=== PATIENT | female | born 1935 | race Caucasian/White ===

== ENCOUNTER 2017-08-16 05:57 | Emergency (ER) | payer MEDICARE, OTHER | END 2017-08-16 06:34 | disposition home or self-care (01) | LOC: D.ER 05:57 | DX: S61.412A Laceration without foreign body of left hand, initial encounter (principal); W55.03XA Scratched by cat, initial encounter; Y93.89 Activity, other specified; Y92.019 Unspecified place in single-family (private) house as the place of occurrence of the external cause ==

== ENCOUNTER 2019-07-27 18:32 | Inpatient (IN) | payer MEDICARE, OTHER ==
[~2019-07-27] VITALS: Ht 172.7 cm; Wt 72.6 kg
[~2019-07-27 18:32] MED LIST: ACETAMINOPHEN500 M1 PO; CYANOCOBAL1000 MCG/4 SC; FLORAJEN3 CAPS460 MG PO; FOLATE0.4 MG PO; FUROSEMIDE20 MG PO; IPRAT-ALBUT 0.5-3 ML INH; K-DUR20 MEQ PO; LOVENOX40 MG/0.4 SC; MUCINEX600 MG PO; Nystatin Oral Susp [ PO; ONCOLOGY MOUTHWASH PO; PEPCID PO; PROTONIX40 MG PO; Retacrit SC; SYNTHROID75 MCG PO; THERAGRAN M [BK1 TAB PO
[2019-07-27 21:34] VITALS: BP 122/56
--- NOTE | 2019-07-27 23:43 | NUR ---
RECEIVED PT LYING IN BED EYES CLOSED RESTING. NO SIGNS OF ACUTE DISTRESS NOTED. RIGHT HIP INCISIONS X3 DISTAL INCISION DRESSING C/D/I. CL IN REACH. BED ALARM ON.
--- NOTE | 2019-07-28 00:12 | NUR ---
PT LYING IN BED SUPINE EYES CLOSED RESTING. RR EVEN AND UNLABORED. CONTINUES ON 3L VIA NC. CL IN REACH
[2019-07-28 03:38] VITALS: BP 122/56; BMI 24.3
--- NOTE | 2019-07-28 05:17 | NUR ---
PT LYING IN BED EYES CLOSED RESTING. RR EVEN AND UNLABROED. CL IN REACH
[2019-07-28 06:58] LABS: BASOPHILS 0.2 % (0-2); EOSINOPHILS 0.4 % (0-7); HEMATOCRIT 30.3 % (36.0-48.0); LYMPHOCYTES 29.7 % (15-50); MCH 35.4 pg (26.0-34.0); MCHC 29.7 g/dL (31.0-37.0); MEAN PLATELET VOLUME 9.7 fL (7.4-10.4); MONOCYTES 8.9 % (2-11); NEUTROPHILS 59.8 % (40-80); PLATELET COUNT 270 10x3/uL (130-400); RBC 2.54 10x6/uL (4.00-5.40); WBC 5.1 10x3/uL (4.8-10.8)
[2019-07-28 07:05] LABS: CALC OSMOLALITY 273 mosm/kg (275-300); CALCIUM 7.8 mg/dL (8.5-10.1); CARBON DIOXIDE 27.6 mmol/L (21.0-32.0); CHLORIDE - SERUM 103 mmol/L (98-107); CREATININE - SERUM 0.6 mg/dL (0.6-1.3); GLUCOSE 94 mg/dL (74-106); MCV 119.3 fL (80.0-100.0); POTASSIUM - SERUM 3.7 mmol/L (3.5-5.1); SODIUM 137 mmol/L (136-145); UREA NITROGEN 12 mg/dL (7-18); eGFR NON AFRICAN AMERICAN > 90 mL/min (90-120)
[2019-07-28 08:00] VITALS: BP 140/66
--- NOTE | 2019-07-28 08:00 | NUR ---
PATIENT IS VERY CONFUSED. BED ALARM ON. BREAKFAST TRAY SET UP FOR PATIENT. CALL LIGHT WITHIN REACH. VOCIES NO NEEDS. WILL COTNINUE WITH PLAN OF CARE
--- NOTE | 2019-07-28 10:55 | NUR ---
OCCUPATIONAL THERAPIST IN ROOM. HELPING PATIENT WITH A SHOWER
[2019-07-28 12:07] LABS: ROULEAUX OCC
[2019-07-28 12:08] LABS: ANISOCYTOSIS 1+; PLATELET ESTIMATE NORMAL
[2019-07-28 14:33] VITALS: Ht 172.7 cm; Wt 72.6 kg
--- NOTE | 2019-07-28 18:49 | NUR ---
Fotofeedback TECH CALLED AND NOTIFIED THIS NURSE THAT PULSE WAS IRREGULAR RUNNING IN THE 150'S. DR MACEDO NOTIFIED. NEW ORDER FOR DIG 0.25 NOW. GIVEN
[2019-07-28 19:30] VITALS: BP 94/50
--- NOTE | 2019-07-29 00:44 | NUR ---
RECEIVED LYING IN BED. ORIENTED TO SELF ONLY. BRUISES NOTED TO UPPER EXTS. DR REMINGTON DESIR DUE TO PATIENT IN AFIB WITH RATE 130'S. PATEINT HAD RECEIVED DIGOXIN 0.25 PO AT 1850. NO ORDERS RECEIVED. PT CONVERTED TO SR RATE 87. PATIENT HAD NO C/O WHEN IN AFIB. RELATE SHE WAS JUST TIRED. ASSISTED TO BATHROOM. WEAK AND USTEADY. O2 AT 3L/MIN NC. MEDS ADMINISTERED PER ORDERS WITHOUT DIFFICULTY. CONTINUE POC AND PROVIDE SAFE ENVIRONMENT.
--- NOTE | 2019-07-29 03:44 | NUR ---
PT AWAKE. C/O SERGIO 03/31 TO RLE. PRN TYLENOL 500MG ADMINISTERED PER ORDERS.
[2019-07-29 07:26] LABS: ANION GAP 9.1 mmol/L (8-16); CALCIUM 8.2 mg/dL (8.5-10.1); CARBON DIOXIDE 27.8 mmol/L (21.0-32.0); CREATININE - SERUM 0.8 mg/dL (0.6-1.3); POTASSIUM - SERUM 3.9 mmol/L (3.5-5.1)
--- NOTE | 2019-07-29 07:36 | NUR ---
PATIENT IS VERY CONFUSED. BED ALARM ON. CALL LIGHT WITHIN REACH. VOICES NO NEEDS AT THIS TIME. WILL CONTINUE WITH PLAN OF CARE
[2019-07-29 08:00] VITALS: BP 132/53
[2019-07-29 08:07] LABS: BASOPHILS 0.2 % (0-2); EOSINOPHILS 0.4 % (0-7); HEMATOCRIT 32.5 % (36.0-48.0); HEMOGLOBIN 9.5 g/dL (12-16); IMMATURE GRANULOCYTES 0.6 % (0-5); LYMPHOCYTES 32.8 % (15-50); MCH 35.3 pg (26.0-34.0); MCHC 29.2 g/dL (31.0-37.0); MCV 120.8 fL (80.0-100.0); MEAN PLATELET VOLUME 10.3 fL (7.4-10.4); MONOCYTES 13.3 % (2-11); NEUTROPHILS 52.7 % (40-80); PLATELET COUNT 283 10x3/uL (130-400); RBC 2.69 10x6/uL (4.00-5.40); RDW 22.7 % (11.5-14.5); WBC 5.3 10x3/uL (4.8-10.8)
--- NOTE | 2019-07-29 14:42 | NUR ---
PATIENT RESTING IN BED AFTER THERAPY. BED ALARM ON. CALL LIGHT WITHIN REACH.
--- NOTE | 2019-07-29 15:20 | NUR ---
PATIENT ADMITTED TO REHAB FROM ACUTE FLOOR. DR. ANDERSON IS HER PCP. DME AT HOME IS A CANE. DISCHARGE PLANS ARE FOR [facility]IENT TO [facility] BUT IF NEEDING TO GO SNF, [facility] IS HER CHOICE. WILL CONTINUE TO FOLLOW WITH PATIENT.
--- NOTE | 2019-07-29 19:43 | NUR ---
AWAKE AND ALERT BUT CONFUSED. REPSIRAITONS UNLABORED. RIGHT HIP INCISION OPEN TO AIR. TELEMETRY ON SHOWING SINUS RHYTHM. NO ACUTE DISTRESS NOTED. CALL LIGHT IN REACH.
[2019-07-29 20:00] VITALS: BP 123/57
--- NOTE | 2019-07-30 01:04 | NUR ---
MEDICATED FOR C/O PAIN IN RIGHT HIP. SEE MAR. NOTED VERY CONFUSED. ATTEMPTED TO REORIENT. SAFETY MEASURES IN PLACE.
--- NOTE | 2019-07-30 05:08 | NUR ---
RESTING IN BED WITH RESPIRATIONS UNLABORED. NO NEEDS VOICED AT THIS TIME. CALL LIGHT IN REACH.
--- NOTE | 2019-07-30 07:57 | NUR ---
PT UP IN CHAIR AT BEDSIDE EATING BREAKFAST CALL LIGHT IN REACH WILL MONITER
[2019-07-30 08:18] VITALS: BP 137/56
--- NOTE | 2019-07-30 16:55 | NUR ---
I have reviewed this patient and I concur with the Shift Assessment completed by the Licensed Practical Nurse today this shift.
--- NOTE | 2019-07-30 19:04 | NUR ---
PT RESTING IN BED WITH EYES OPEN CALL LIGHT IN REACH NO PROBLEMS WILL MONITER
[2019-07-30 19:43] VITALS: BP 136/57
--- NOTE | 2019-07-30 20:00 | NUR ---
AWAKE AND ALERT. RESTING IN BED. INCONTINENT OF URINE. ASSISTED TO BATHROOM TO CHANGE AND BED LINENS CHANGED. ASSISTED BACK TO BED. STATES HER HIP HASNT HURT BAD TODAY. RESPIRATIONS UNLABORED. CALL LIGHT IN REACH.
[2019-07-30 21:30] VITALS: BP 155/76
--- NOTE | 2019-07-30 21:30 | NUR ---
C/O FEELING HOT. FACE FLUSHED. TEMPERATURE CHECKED AT PATIENT IS AFEBRILE AT 98.3. ASSISTED TO BATHROOM PER REQUEST. STATES SHE "JUST FEELS WEAK" ASSISTED BACK TO BED. HAD BREATHING TREATMENT BEFORE SHE STARTED FEELING WEAK AND HOT. VITAL SIGNS TAKEN. BLOOD PRESSURE 155/76 PULSE 94 RESPIRATIONS 16 O2 SATURATION 95% ON ROOM AIR. FAN PROVIDED TO ASSIST IN COOLING HER OFF. WILL CONTINUE TO MONITOR.
--- NOTE | 2019-07-30 22:08 | NUR ---
NOW STATES SHE FEELS A LITTLE BETTER AND COOLER. WILL CONTINUE TO MONITOR.
--- NOTE | 2019-07-30 22:47 | NUR ---
STATES SHE FEELS MUCH BETTER NOW. STATES "I DONT KNOW WHAT CAME OVER ME. I WAS JUST FEELING WEAK AND HOT BUT NOW IM COOL." ASSISTED TO BATHROOM AND BACK TO BED. CALL LIGHT IN REACH.
--- NOTE | 2019-07-31 01:15 | NUR ---
SITTING ON SIDE OF BED. CONFUSED. STATES "I KNOW WHO I AM BUT I'M CONFUSED." REMINDED SHE WAS IN [facility] AFTER HIP SURGERY. ASSITED TO LIE DOWN AND ASSURED THAT I WOULD CHECK ON HER OFTEN. SHE IS NOW RESTING IN BED. CALL LIGHT IN REACH BED ALARM ON.
--- NOTE | 2019-07-31 03:34 | NUR ---
SLEEPING WITH RESPIRATIONS UNLABORED. NO DISTRESS NOTED.
--- NOTE | 2019-07-31 05:25 | NUR ---
SHOWER GIVEN AND TOLERATED WELL. LINENS CHANGED. NOW RESTING IN BED WITH NO DISTRESS NOTED.
--- NOTE | 2019-07-31 08:00 | NUR ---
PT RESTING IN BED WITH EYES OPEN CALL LIGHT IN REACH NO PROBLEMS WILL MONITER
--- NOTE | 2019-07-31 18:10 | NUR ---
PT RESTING IN BED WITH EYES OPEN CALL LIGHT IN REACH WILL MONITER
--- NOTE | 2019-07-31 19:15 | NUR ---
CALLED TO ROOM BY ROOM MATE. PATIENT HAD STATED "IF I WAS EVER GOING TO COMMIT SUICIDE IT WOULD BE TODAY" SHE WAS TEARY AND AFTER TALKING WITH HER SHE STATED "I DONT KNOW WHY, THAT MEDICATION MAKES ME CRAZY" BUT SHE WAS UNABLE TO STATE WHICH MEDICATION. BLOWING ENGINEER NOTIFIED AND DAVID-PSYCH STAFF NOTED FOR SUICIDE ASSESSMENT. PATIENT REQUEST I CALL HER SISTER OR GRANDAUGHTER IN [place]. I WILL CALL THEM AND MAKE THEM AWARE OF SITUAITON.
--- NOTE | 2019-07-31 19:24 | NUR ---
CALLED MARY ALICE CASTILLO AND MESSAGE LEFT.
--- NOTE | 2019-07-31 19:36 | NUR ---
DR VELASCO, SAUSAGE CUTTER FOR OLVIN, NOTIFIED AND REVIEWED PT'S BEHAVIOR AND ASSESSMENT RESULTS. PT IS A LOW RISK. RESOURCES GIVEN AND SHE VERBALIZES UNDERSTANDING.
--- NOTE | 2019-07-31 19:42 | NUR ---
[facility] [place] CALLED AND SHE IS AWARE OF SITUATION. SHE STATES SHE WILL LET HER GRANDSON KNOW AND HE WOULD LIKELY COME HERE TO SEE HER. PSYCH NURSE DID SUICIDE ASSESMENT AND DEEMED PAITENT WAS NOT A RISK. WILL CONTINUE TO MONITOR CLOSELY.
[2019-07-31 19:46] VITALS: BP 144/67
--- NOTE | 2019-07-31 20:15 | NUR ---
PATIENTS GRANDSON CALLED HER AND TALKED WITH HER AND SHE STATED HE WOULD COME IN AM FOR A VISIT. PATIENT IS CALMER NOW AND RESTING QUIETLY. NO DISTRESS NOTED.
--- NOTE | 2019-08-01 00:47 | NUR ---
ATE SOME PUDDING AND THEN REPOSITIONED FOR COMFORT. STILL HAVING SOME CONFUSION. SAFETY MEASURES IN PLACE.
--- NOTE | 2019-08-01 03:06 | NUR ---
AWAKE AND REQUESTED TO GO TO BATHROOM. REMAINS CONFUSED. PULLED TELEMETRY OFF. REPLACED TELEMETRY LEADDS. ASSISTED TO BATHROOM. HAD SMALL BM. BACK IN BED WITH CALL LIGHT IN REACH.
--- NOTE | 2019-08-01 05:02 | NUR ---
RESTING IN BED. NO DISTRESS NOTED. HAS NOT SLEPT MUCH THIS SHIFT. CALL LIGHT IN REACH.
--- NOTE | 2019-08-01 07:33 | NUR ---
AWAKE. EATING BREAKFAST. NO C/O PAIN. CL IN REACH. RESP EVEN AND UNLABORED.
[2019-08-01 08:12] VITALS: BP 131/56
--- NOTE | 2019-08-01 11:36 | NUR ---
NO CHANGE IN ASSESSMENT. PARTICIPATED IN THERAPY TODAY. NO C/O PAIN.
--- NOTE | 2019-08-01 12:05 | RHP ---
PATIENT: IRASEMA FRYE MEDICAL RECORD: [id number] ACCOUNT: [id number] LOCATION:[facility] : 34 ADMISSION DATE: 07/27/19 REHABILITATION HISTORY AND PHYSICAL EXAMINATION POST ADMISSION PHYSICIAN EXAMINATION ADMITTING DIAGNOSIS: Femur fracture. HISTORY OF PRESENT ILLNESS: The patient is an 84-year-old female patient admitted secondary to a fracture of the right femur. The patient had a right hip gamma nailing done. She is an 84-year-old female patient who presented to the ED after sitting down in her bed to put her clothes on and she missed the bed falling on her right hip. She had immediate pain and trouble ambulating. X-ray showed an acute displaced intertrochanteric subtrochanteric fracture with displaced fragments. She was admitted to the hospital for orthopedic surgery consult. She is a Pentecostalism and she does not want any blood products. Her H&H was 10.5 and 33.2. It has gone down a little bit all the way down to 3.6 and 11.3, but it is now back up. She had been followed by oncology and hematology, is receiving IV iron. She has been seen by cardiology, found to have a non-Q-wave [place], elevated troponin. She has been followed by pulmonary during her stay. She has also been seen and followed by both PT and OT throughout her stay. She did have a pelvic x-ray done on 07/27 that did show she had refracture of that right femur also. There is no intervention, is weightbearing as tolerated at this time. She has required IV iron, electrolyte protocol, supplemental oxygen, acute blood loss anemia. Monitoring her levels closely. Monitoring her vital signs. She has had some confusion. She has got decreased activity tolerance, decreased strength, proximal muscle weakness, gait disturbance, impaired mobility, dyspnea on exertion. She is a high fall risk and has self-care deficit. These are all her barriers to her discharge home. Lives at home alone, was independent with ADLs and mobility prior to this. She is set up for max assist with her ADLs and mod to max assist with her mobility. She plans to return home at her prior level of function or better if possible. COMORBIDITIES: Include oropharyngeal dysphagia, dysarthria speech, hyponatremia. She has got a non-Q-wave WV, chronic obstructive pulmonary disease, pneumonia, hypoxia, hypoxic respiratory failure, decreased H&H. She is a Pentecostalism. She is an ex-smoker. She has got a history of nephrolithiasis, neurocardiogenic syncope, hypothyroidism, esophageal stricture, has a history of positive SHARITA in the past. PAST MEDICAL HISTORY: Significant for coronary artery disease, nephrolithiasis, neurocardiogenic syncope, hypothyroidism, esophageal stricture, cataracts, glaucoma, tobacco use, kidney stones, constipation. PAST SURGICAL HISTORY: Includes left heart catheterization with stent placement. She has got right carotid stenosis of 50%. She had a history of cataract surgery, trabeculectomy, surgery on her foot, hysterectomy, right knee surgery, oophorectomy. ALLERGIES: PENICILLIN, STATINS, NEOMYCIN, BACITRACIN AND POLYMYXIN. CURRENT MEDICATIONS: Include Floranex 1 cap daily, she is on Retacrit 20,000 units daily, she is on potassium 20 mEq daily, furosemide 20 mg daily, folic acid 0.4 mg daily, multivitamin 1 tab daily, Lovenox 40 mg subQ daily, she is on B12 1000 mcg daily, DuMane updrafts, she is on Protonix 40 mg daily, she is on HISTORY AND PHYSICAL [id number] FRIEND,IRASEMA Abebe Pepcid 20 mg at bedtime, she is on an oncology mouthwash 5 cc t.i.d., she is on Mycostatin suspension 5 cc before every meal and at bedtime, Mucinex 600 mg b.i.d., MiraLax 17 g in 8 ounces of water daily and Tylenol 500 mg every 4 hours p.r.n. HABITS: Distant history of tobacco use. FAMILY HISTORY: Noncontributory. SOCIAL HISTORY: The patient hopes to return back home and get back on her prior level of functioning. REVIEW OF SYSTEMS: GENERAL: Does complain of weakness and fatigue. HEENT: Denies cold, cough, or congestion. CARDIOVASCULAR: Denies any chest pain. PHYSICAL EXAMINATION: VITAL SIGNS: Stable, afebrile. GENERAL: An elderly female in no acute distress, alert upon exam. HEENT: Normocephalic and atraumatic. Mucosa moist. NECK: Supple. No lymphadenopathy. LUNGS: Clear in upper [place] with no wheezing, rhonchi or rales. HEART: Regular rate and rhythm. No murmurs, rubs or gallops. ABDOMEN: Soft, benign, and nondistended. Positive bowel sounds times 4. EXTREMITIES: No clubbing, cyanosis or edema. Postop area looks pretty good at this time. NEUROLOGIC: She does have noted weakness. LABORATORY DATA: White count is 5.0, H&H of 9 and 30, and platelet count is noted to be 270. Her sodium is 137, potassium 3.7, BUN and creatinine of 12 and 0.6 and blood sugar is noted to be 94. ASSESSMENT: This is an 84-year-old female patient admitted to rehab with a working diagnosis of femur fracture. The patient has potential to make improvement. We instituted the following multidisciplinary therapies include, but not limited to physical, occupational, respiratory, speech, nutritional services, prosthetics and orthotics. Given her complex medical conditions and risks for more complications, rehabilitation services cannot be provided at a low level of care such a skilled nurse facility. PLAN: 1. Admit to [facility] for intensive inpatient therapy to include the following disciplines; A. Physical therapy to improve gait, all transfer skills and bed mobility to a modified independent level. B. Occupational therapy to a modified independent level. C. Case management to assist with discharge planning and placement options. D. Nutrition to assist with nutritional needs. E. Rehabilitation nursing to assist in monitoring the patient's underlying medical conditions and to assist with any type of bowel or bladder management. 2. The patient's current medication and medical care will be continued. 3. The patient will be placed on standard fall precautions. 4. The patient's estimated length of stay is approximately 7-10 days. 5. We will discuss the patient during care team staff meeting this week. We HISTORY AND PHYSICAL [id number] FRIEND,IRASEMA Abebe will watch her blood counts closely. We are somewhat limited with her being a Pentecostalism and I will see again in the a.m. TRANSINT:[id number] Voice Confirmation ID: [id number] DOCUMENT ID: [id number] [place] notes whether there has been none or any medical/functional change since admission: - No change since prescreen. [place] attests patient continues to be appropriate for IRF: - Continues to be appropriate. MARSHA MACEDO MD at 1205 CC: [id number] DICTATION DATE: 02/06/20 0821 BUILDING CONSTRUCTION PROFESSOR: 07/28/19 0940 ADM IN [facility] [address] [facility], [facility]
--- NOTE | 2019-08-01 13:10 | NUR ---
Nutrition Follow-up: Diet: High Calorie High Protein soft foods, finger foods + Ensure with meals PO intake: ~83% average x last 7 meals; reports good appetite and that she is drinking her Ensures. Last BM: 08/01/19. WT: 160# (07/28/19) Meds noted: lasix. Labs reviewed Recommend continue current diet. RD following.
--- NOTE | 2019-08-01 15:52 | NUR ---
IN THERAPY ROOM. PAIN MADE GIVEN. NO CHANGE IN ASSESSMENT.
--- NOTE | 2019-08-01 19:05 | NUR ---
BEDSIDE REPORT COMPLETE. RECIEVED PT LYING IN BED EYES CLOSED RESTING. RR EVEN AND UNLABORED. NO FAMILY AT BEDSIDE NOTED. CL IN REACH. FALL PRECAUTIONS IN PLACE. WILL CONTINUE TO MONITOR
[2019-08-01 20:45] VITALS: BP 108/42
--- NOTE | 2019-08-01 23:30 | NUR ---
SIX COLOR PRESS OPERATOR CALLED AND STATED PT HAS BEEN ON TELEMETRY FOR 10 DAYS RUNNING SINUS RHYTHM AND TO DC TELEMETRY. TELEMETRY DC'D.
--- NOTE | 2019-08-02 00:56 | NUR ---
PT LYING IN BED EYES CLOSED RESTING. RR EVEN AND UNLABORED. CL IN REACH
--- NOTE | 2019-08-02 04:08 | NUR ---
PT LYING IN BED EYES CLOSED RESTING. RR EVEN AND UNLABORED. CL IN REACH
--- NOTE | 2019-08-02 05:30 | NUR ---
PT IN SHOWER WITH ASSISTANCE IBETH GAY. DENIES ANY NEEDS OR PAIN.
--- NOTE | 2019-08-02 07:58 | NUR ---
PT UP EATING BREAKFAST TOLERATING WELL WILL MONITER
[2019-08-02 08:04] VITALS: BP 144/50
--- NOTE | 2019-08-02 18:43 | NUR ---
PT RESTING IN BED WITH EYES OPEN CALL LIGHT IN REACH NO PROBLEMS WILL MONITER
--- NOTE | 2019-08-02 19:07 | NUR ---
BEDSIDE REPORT COMPLETE. RECEIVED PT LYING IN BED SUPINE ALERT AND WAKE. DENIES ANY NEEDS. C/O RIGHT HIP PAIN 12/29 REQUESTED PAIN MEDICATION. NO SIGNS OF ACUTE DISTRESS NOTED. CL IN REACH. FALL PRECAUTIONS IN PLACE. WILL CONTINUE TO MONITOR
[2019-08-02 21:50] VITALS: BP 114/52
--- NOTE | 2019-08-02 23:20 | NUR ---
PT LYING IN BED EYES CLOSED RESTING. RR EVEN AND UNLABORED. CL IN REACH
--- NOTE | 2019-08-03 02:28 | NUR ---
PT LYING IN BED SUPINE EYES CLOSED RESTING. RR EVEN AND UNLABORED. CL IN REACH
[2019-08-03 08:44] VITALS: BP 141/60
[2019-08-03 08:50] LABS: CALC OSMOLALITY 271 mosm/kg (275-300); CALCIUM 8.3 mg/dL (8.5-10.1); CARBON DIOXIDE 27.8 mmol/L (21.0-32.0); CHLORIDE - SERUM 103 mmol/L (98-107); CREATININE - SERUM 0.7 mg/dL (0.6-1.3); GLUCOSE 92 mg/dL (74-106); POTASSIUM - SERUM 3.9 mmol/L (3.5-5.1); SODIUM 136 mmol/L (136-145); UREA NITROGEN 13 mg/dL (7-18); eGFR NON AFRICAN AMERICAN 84 mL/min (90-120)
[2019-08-03 08:57] LABS: BASOPHILS 0.5 % (0-2); EOSINOPHILS 1.2 % (0-7); HEMATOCRIT 35.1 % (36.0-48.0); HEMOGLOBIN 10.4 g/dL (12-16); IMMATURE GRANULOCYTES 0.2 % (0-5); LYMPHOCYTES 38.4 % (15-50); MCHC 29.6 g/dL (31.0-37.0); MCV 118.2 fL (80.0-100.0); MEAN PLATELET VOLUME 9.4 fL (7.4-10.4); MONOCYTES 13.5 % (2-11); NEUTROPHILS 46.2 % (40-80); PLATELET COUNT 317 10x3/uL (130-400); RBC 2.97 10x6/uL (4.00-5.40); RDW 20.3 % (11.5-14.5)
--- NOTE | 2019-08-03 09:00 | NUR ---
OCCUPATIONAL THERAPIST WORKING WITH PATIENT. HELPING PATIENT WITH A SHOWER
--- NOTE | 2019-08-03 10:13 | NUR ---
PATIENT IN REHAB ROOM. WORKING WITH PHYSICAL THERAPIST. DENIES ANY PAIN/DISC. WILL CONTINUE WITH PLAN OF CARE
--- NOTE | 2019-08-03 12:26 | NUR ---
PRN PAIN MEDICATION GIVEN PER PATIENT REQUEST FOR RIGHT THIGH PAIN
--- NOTE | 2019-08-03 19:29 | NUR ---
AWAKE AND ALERT. STATES SHE HAD A GOOD DAY. RESPIRATIONS UNLABORED. PERIODS OF CONFUSION. NO ACUTE DISTRESS NOTED. CALL LIGHT IN REACH.
[2019-08-03 21:41] VITALS: BP 124/52
--- NOTE | 2019-08-04 01:35 | NUR ---
RESTING IN BED WITH RESPIRAITONS UNLABORED. NO DISTRESS NOTED.
--- NOTE | 2019-08-04 03:18 | NUR ---
NOTED SITTING ON FOOT OF BED. REMAINS CONFUSED TO TIME AND SITUATION. ASSISTED TO BATHROOM AND BACK TO BED. HAD INCONTINENT EPISODE OF URINE. BRIEF CHANGED. REMINDED TO CALL FOR ASSISTANCE.
--- NOTE | 2019-08-04 05:32 | NUR ---
RESTING IN BED. NO ACUTE CHANGES IN CONDITION THIS SHIFT. RESPIRATIONS UNLABORED. NO DISTRESS NOTED.
[2019-08-04 08:12] VITALS: BP 163/67
--- NOTE | 2019-08-04 09:55 | NUR ---
PATIENT IS ALERT WITH CONFUSION. IN REHAB ROOM WORKING WITH PHYSICAL THERAPIST. DENIES ANY PAIN AT THIS TIME. WILL CONTINUE WITH PLAN OF CARE
--- NOTE | 2019-08-04 14:33 | NUR ---
PATIENT SITTING UP IN WHEELCHAIR AT BEDSIDE AFTER THERAPY. WATCHING T.V. CHAIR ALARM ON. CALL LIGHT WITHIN REACH
--- NOTE | 2019-08-04 14:50 | NUR ---
Nutrition Follow-up: Diet: High Calorie High Protein Soft, finger foods + Chocolate Ensure TID PO intake: ~84% average x last 9 meals Last BM: 08/02/19. WT: 160# (07/28/19) Meds noted: lasix. Labs reviewed. Recommend continue current diet and oral nutrition supplement. Encourage PO intake. RD following.
--- NOTE | 2019-08-04 15:16 | NUR ---
PRN PAIN MEDICATION GIVEN FOR BILATERAL LEG PAIN PER PATIENT REQUEST
--- NOTE | 2019-08-04 17:06 | NUR ---
CARE TEAM MEETING: PATIENT PROGRESSING SLOWLY IN THERAPY. DISCHARGE PLANS ARE FOR PATIENT TO DISCHARGE TO [facility]. WILL CONTINUE TO FOLLOW WITH PATIENT.
--- NOTE | 2019-08-04 20:02 | NUR ---
AWAKE AND ALERT. CONFUSED. SITTING IN WHEELCHAIR. MEDICATED FOR C/O PAIN. SEE MAR. RESPIRAITONS UNLABORED. NO DISTRESS NOTED.
[2019-08-04 22:13] VITALS: BP 143/60
--- NOTE | 2019-08-05 02:16 | NUR ---
AWAKE AND RESPIRATIONS UNLABORED. NO DISTRESS NOTED.
--- NOTE | 2019-08-05 05:26 | NUR ---
RESTING IN BED. RESPIRATIONS UNLABORED. NO ACUTE DISTRESS NOTED. CONTIUES TO HAVE PERIODS OF CONFUSION.
[2019-08-05 08:35] LABS: CALC OSMOLALITY 276 mosm/kg (275-300); CALCIUM 8.4 mg/dL (8.5-10.1); CARBON DIOXIDE 27.1 mmol/L (21.0-32.0); CHLORIDE - SERUM 104 mmol/L (98-107); CREATININE - SERUM 0.7 mg/dL (0.6-1.3); GLUCOSE 98 mg/dL (74-106); POTASSIUM - SERUM 4.1 mmol/L (3.5-5.1); SODIUM 138 mmol/L (136-145); UREA NITROGEN 15 mg/dL (7-18); eGFR NON AFRICAN AMERICAN 84 mL/min (90-120)
[2019-08-05 09:09] LABS: BASOPHILS 0.3 % (0-2); EOSINOPHILS 0.5 % (0-7); HEMATOCRIT 39.2 % (36.0-48.0); HEMOGLOBIN 11.8 g/dL (12-16); IMMATURE GRANULOCYTES 0.8 % (0-5); LYMPHOCYTES 45.3 % (15-50); MCH 35.4 pg (26.0-34.0); MCHC 30.1 g/dL (31.0-37.0); MCV 117.7 fL (80.0-100.0); MEAN PLATELET VOLUME 9.8 fL (7.4-10.4); MONOCYTES 14.8 % (2-11); NEUTROPHILS 38.3 % (40-80); PLATELET COUNT 295 10x3/uL (130-400); RBC 3.33 10x6/uL (4.00-5.40); WBC 3.7 10x3/uL (4.8-10.8)
[2019-08-05 09:41] VITALS: BP 165/73
--- NOTE | 2019-08-05 18:50 | NUR ---
PT RESTING IN BED WITH EYES OPEN CALL LIGHT IN REACH NO PROBLEMS WILL MONITER
[2019-08-05 20:00] VITALS: BP 129/54
--- NOTE | 2019-08-05 23:00 | NUR ---
PT IN BED RESTING WITH EYES CLOSED. NO VISUAL CUES OF DISTRESS NOTED. SIDE RAILS UP X2. CALL LIGHT IN REACH. WILL CONTINUE TO MONITOR.
--- NOTE | 2019-08-06 03:00 | NUR ---
PT IN BED RESTING WITH EYES CLOSED. NO VISUAL CUES OF DISTRESS NOTED. SIDE RAILS UP X2. CALL LIGHT IN REACH. WILL CONTINUE TO MONITOR.
--- NOTE | 2019-08-06 07:15 | NUR ---
RECEIVED SITTING UP IN BEDSIDE CHAIR.IS ORIENTED X 3.NO C/O PAIN OR NEEDS EXCEPT WANTS A SHOWER TODAY.WILL AST.WITH ASSIST WITH SHOWER TODAY.CL IN EASY REACH.WILL CONTINUE WITH CURRENT PLAN OF CARE.
[2019-08-06 07:30] VITALS: BP 137/59
--- NOTE | 2019-08-06 08:50 | NUR ---
MEDS CRUSHED AND GIVEN IN PUDDING PER HER REQUEST.TAKEN WITHOUT DIFFICULTY.ASSISTED TO BATHROOM AND THEN TO BED.REQUIRES ASSIST WITH STANDING AND PULLING PANTS DOWN AND UP.REQUIRES ASSIST WITH LIFTING LEGS INTO BED.CL IN EASY REACH.
--- NOTE | 2019-08-06 19:29 | NUR ---
BEDSIDE REPORT COMPLETE. PT LYING IN BED SUPINE EYES CLOSED RESTING. RR EVEN AND UNLABORED. CL IN REACH. FALL PRECAUTIONS IN PLACE
[2019-08-06 20:30] VITALS: BP 136/62
--- NOTE | 2019-08-06 23:28 | NUR ---
PT LYING IN BED SUPINE EYES CLOSED RESTING. RR EVEN AND UNLABORED. CL IN REACH
--- NOTE | 2019-08-07 04:38 | NUR ---
PT LYING IN BED EYES CLOSED RESTING. RR EVEN AND UNLABORED. CL IN REACH
--- NOTE | 2019-08-07 07:45 | NUR ---
PT LYING SUPINE IN BED. RESPONDS TO VERBAL STIMULI. RESP EVEN AND UNLABORED. SHIFT ASSESSMENT COMPLETED. DENIES ANY PAIN OR DISCOMFORT AT THIS TIME. PT ASSISTED TO RESTROOM PER REQUEST. PT RESTING IN W/C AWAITING FOR BREAKFAST AT THIS TIME. CLWR. WILL CPOC.
[2019-08-07 08:00] VITALS: BP 126/56
--- NOTE | 2019-08-07 19:10 | NUR ---
BEDSIDE REPORT COMPLETE. PT LYING IN BED AWAKE AND ALERT TO PERSON AND PLACE. REORIENTED TO TIME AND SITUATION. NO SIGNS OF ACUTE DISTRESS NOTED. CL IN REACH. FALL PRECAUTIONS IN PLACE WILL CONTINUE TO MONITOR
[2019-08-07 20:00] VITALS: BP 116/48
--- NOTE | 2019-08-08 00:46 | NUR ---
PT LYING IN BED EYES CLOSED RESTING. RR EVEN AND UNLABORED. CL IN REACH
--- NOTE | 2019-08-08 04:16 | NUR ---
PT LYING IN BED SUPINE EYES CLOSED RESTING. RR EVEN AND UNLABORED. CL IN REACH
--- NOTE | 2019-08-08 06:37 | NUR ---
PT LYING IN BED AWAKE AND ALERT VISITING WITH ROOMMATE FAMILY. RR EVEN AND UNLABORED. CL IN REACH
[2019-08-08 07:54] LABS: BASOPHILS 0.2 % (0-2); EOSINOPHILS 0.2 % (0-7); HEMATOCRIT 35.7 % (36.0-48.0); HEMOGLOBIN 10.8 g/dL (12-16); IMMATURE GRANULOCYTES 0.5 % (0-5); LYMPHOCYTES 39.2 % (15-50); MCH 34.4 pg (26.0-34.0); MCHC 30.3 g/dL (31.0-37.0); MCV 113.7 fL (80.0-100.0); MEAN PLATELET VOLUME 9.1 fL (7.4-10.4); MONOCYTES 13.8 % (2-11); NEUTROPHILS 46.1 % (40-80); PLATELET COUNT 310 10x3/uL (130-400); RBC 3.14 10x6/uL (4.00-5.40); RDW 18.4 % (11.5-14.5); WBC 4.3 10x3/uL (4.8-10.8)
[2019-08-08 08:00] VITALS: BP 141/66
[2019-08-08 08:03] LABS: CALC OSMOLALITY 274 mosm/kg (275-300); CALCIUM 8.2 mg/dL (8.5-10.1); CARBON DIOXIDE 28.5 mmol/L (21.0-32.0); CHLORIDE - SERUM 104 mmol/L (98-107); CREATININE - SERUM 0.6 mg/dL (0.6-1.3); GLUCOSE 100 mg/dL (74-106); POTASSIUM - SERUM 3.5 mmol/L (3.5-5.1); SODIUM 137 mmol/L (136-145); UREA NITROGEN 15 mg/dL (7-18); eGFR NON AFRICAN AMERICAN > 90 mL/min (90-120)
--- NOTE | 2019-08-08 12:28 | NUR ---
NUTRITION FOLLOW UP INTERVIEW: Met with patient while she was eating lunch. She stated her appetite has been good. Denied any recent nausea or vomiting. She stated that she has been drinking and enjoying the Ensures. DIET: High myrna/protein diet. Chocolate Ensure TID PO INTAKE: 75% avg x 9 meals BM: x 2 on 08/06 WEIGHT: 160 lbs (07/28) SIG MEDS: KCl, MVI, Lasix, Folic Acid, Pepcid, Nystatin, Protonix, Loveonx SIG LABS: Calcium- 8.2(L) Patient eating well and tolerating ensure. Clinical dietitian to continue following and monitoring patient DHS.
--- NOTE | 2019-08-08 19:25 | NUR ---
GREETED PATIENT AND INTRODUCED MYSELF HER NURSE. PATIENT IS LAYING IN BED JUST FINISHING HER DINNER. PT. IS VERY CONFUSED AT THIS TIME. RESPIRATIONS EVEN. NO S/S OF DISTRESS. CALL LIGHT IN REACH.
[2019-08-08 22:21] VITALS: BP 106/51
--- NOTE | 2019-08-09 01:48 | NUR ---
PT. AWAKE AND TRYING TO CLIMB OUT OF BED. PT. STATES THAT SHE NEEDS TO GET UP AND TAKE A SHOWER AND WASH HER HAIR. ATTEMPTED TO REORIENT PT. TO TIME AND SITUATION. PT. REPOSITIONED FOR COMFORT. BED ALARM ON AND WORKING PROPERLY. CALL LIGHT IN REACH. WCTM.
--- NOTE | 2019-08-09 02:16 | NUR ---
PT STILL CONTINUES TO BE CONFUSED CONCERNING TIME. KEEPS INSISTING THAT SHE GET UP AND TAKE A SHOWER AND WASH HER HAIR. ATTEMPTED ONCE AGAIN TO REORIENT PATIENT, BUT PATIENT BECAME VERY RUDE AND STATED " I WILL JUST REPORT YOU TO DR. MACEDO MRS. NURSE FOR NOT GETTING ME UP AND GIVING ME A SHOWER." THIS NURSE ATTEMPTED ONCE AGAIN TO REORIENT PATIENT THAT IT WAS 0210 IN THE MORNING AND IT WAS TOO EARLY FOR A SHOWER. CALL LIGHT IN REACH. [facility]ALTH SYSTEM.
--- NOTE | 2019-08-09 04:09 | NUR ---
PT. RESTING QUIETLY WITH EYES CLOSED. RESPIRATIONS EVEN. NO S/S OF DISTRESS. CALL LIGHT IN REACH.
[2019-08-09 08:00] VITALS: BP 132/62
--- NOTE | 2019-08-09 10:00 | NUR ---
I have reviewed this patient and I concur with the Shift Assessment completed by the Licensed Practical Nurse today this shift.
--- NOTE | 2019-08-09 18:53 | NUR ---
GREETED PATIENT AND INTRODUCED MYSELF HER NURSE. PATIENT IS CONFUSED TO TIME,PLACE AND SITUATION AT THIS TIME. PT. THINKS IT IS TIME TO GET UP AND GO TO THERAPY. REORIENTATED TO TIME AND PLACE. BEDSIDE SHIFT REPORT COMPLETED BY OFF GOING NURSE. CALL LIGHT IN REACH.
[2019-08-09 20:42] VITALS: BP 140/61
--- NOTE | 2019-08-10 05:48 | NUR ---
PT AWAKE AND TRYING TO CLIMB OUT OF BED UNASSISTED. PT. REORIENTATED AND REPOSITIONED FOR COMFORT. CALL LIGHT IN REACH.
--- NOTE | 2019-08-10 05:58 | NUR ---
PT PUT IN WHEELCHAIR AND MOVED TO NURSES STATION. PT. CONFUSED AND REFUSES TO STAY IN BED.
[2019-08-10 08:00] VITALS: BP 129/61
[2019-08-10 09:20] LABS: BASOPHILS 0.4 % (0-2); EOSINOPHILS 0.2 % (0-7); HEMOGLOBIN 11.7 g/dL (12-16); IMMATURE GRANULOCYTES 0.4 % (0-5); LYMPHOCYTES 36.9 % (15-50); MCH 34.9 pg (26.0-34.0); MCV 116.4 fL (80.0-100.0); MEAN PLATELET VOLUME 9.2 fL (7.4-10.4); MONOCYTES 12.6 % (2-11); NEUTROPHILS 49.5 % (40-80); PLATELET COUNT 316 10x3/uL (130-400); RBC 3.35 10x6/uL (4.00-5.40); RDW 18.5 % (11.5-14.5); WBC 4.8 10x3/uL (4.8-10.8)
[2019-08-10 09:24] LABS: CALC OSMOLALITY 278 mosm/kg (275-300); CALCIUM 8.6 mg/dL (8.5-10.1); CHLORIDE - SERUM 104 mmol/L (98-107); CREATININE - SERUM 0.7 mg/dL (0.6-1.3); GLUCOSE 90 mg/dL (74-106); POTASSIUM - SERUM 3.9 mmol/L (3.5-5.1); SODIUM 139 mmol/L (136-145); UREA NITROGEN 16 mg/dL (7-18); eGFR NON AFRICAN AMERICAN 84 mL/min (90-120)
--- NOTE | 2019-08-10 19:02 | NUR ---
GREETED PATIENT AND INTRODUCED MYSELF HER NURSE. PATIENT IS CONFUSED THIS AFTERNOON. AOX1. STATES THAT HER RIGHT KNEE IS STILL HURTING. EXPLAINED TO PATIENT THAT PRN PAIN MEDICATION COULD BE ADMINISTERED FOR THE PAIN. RESPIRATIONS EVEN. NO S/S OF DISTRESS. BEDSIDE SHIFT REPORT COMPLETED FROM OFF GOING NURSE. CALL LIGHT IN REACH.
[2019-08-10 22:11] VITALS: BP 140/65
--- NOTE | 2019-08-11 02:38 | NUR ---
PT. RESTING QUIETLY WITH EYES CLOSED. RESPIRATIONS EVEN. NO S/S OF DISTRESS. CALL LIGHT IN REACH.
--- NOTE | 2019-08-11 08:00 | NUR ---
PATIENT IS ALERT WITH CONFUSION. BED ALARM ON. SITTING UP IN BED TO EAT BREAKFAST. CALL LIGHT WITHIN REACH. VOICES NO NEEDS AT THIS TIME. WILL CONTINUE WITH PLAN OF CARE
[2019-08-11 08:43] VITALS: BP 107/55
--- NOTE | 2019-08-11 10:30 | NUR ---
OCCUPATIONAL THERAPIST HELPING PATIENT WITH SHOWER THIS AM
--- NOTE | 2019-08-11 15:51 | NUR ---
Nutrition Follow-up: Diet: High Calorie/High Protein Soft Finger Foods + Ensure with meals PO intake: ~67% average x last 9 meals. She reports appetite is fine "just too much food." She does state that she likes the food. She is drinking Ensure. Last BM: 08/06/19 ("day before yesterday" per patient), she does c/o constipation. WT: 160# (07/28/19), no new wt Meds noted: lasix. Labs reviewed. Recommend getting new weight. Recommend continue current diet. Encouraged PO intake. RD following.
[2019-08-11 17:51] LABS: APPEARANCE CLEAR (CLEAR); BILIRUBIN NEGATIVE (NEGATIVE); COLOR YELLOW (YELLOW); GLUCOSE NEGATIVE (NEGATIVE); KETONE NEGATIVE (NEGATIVE); NITRITE POSITIVE (NEGATIVE); PROTEIN NEGATIVE (NEGATIVE); UROBILINOGEN NORMAL (NORMAL)
[2019-08-11 17:52] LABS: BACTERIA MANY /hpf (NEGATIVE); EPITHELIAL CELLS 0-5 /hpf (0-5); RED CELLS - URINE OCC /hpf (0-5)
--- NOTE | 2019-08-11 19:25 | NUR ---
ASSISTED TO AND FROM BATHROOM. CL IN REACH. PT BACK IN BED. BED ALARM ON. DENIES FURTHER NEEDS AT THIS TIME. BED IN LOW SIDE RAILS X2. RESP EVEN AND UNLABORED. PT IS CONFUSED THIS IS NOT NEW. LUNGS CLEAR. BOWEL ACTIVE X4. WILL CONTINUE TO MONITOR.
[2019-08-11 22:10] VITALS: BP 131/60
--- NOTE | 2019-08-12 02:52 | NUR ---
I have reviewed this patient and I concur with the Shift Assessment completed by the Licensed Practical Nurse today this shift.
[2019-08-12 07:39] LABS: BASOPHILS 0.2 % (0-2); EOSINOPHILS 0.4 % (0-7); HEMATOCRIT 38.2 % (36.0-48.0); HEMOGLOBIN 11.5 g/dL (12-16); IMMATURE GRANULOCYTES 0.4 % (0-5); LYMPHOCYTES 40.2 % (15-50); MCH 34.3 pg (26.0-34.0); MCHC 30.1 g/dL (31.0-37.0); MEAN PLATELET VOLUME 9.1 fL (7.4-10.4); MONOCYTES 12.8 % (2-11); PLATELET COUNT 299 10x3/uL (130-400); RBC 3.35 10x6/uL (4.00-5.40); WBC 5.1 10x3/uL (4.8-10.8)
--- NOTE | 2019-08-12 08:00 | NUR ---
PATIENT IS CONFUSED. BED ALARM ON. CALL LIGHT WITHIN REACH. VOICES NO NEEDS AT THIS TIME. WILL COTNINUE WITH PLAN OF CARE
[2019-08-12 08:25] VITALS: BP 151/68
[2019-08-12 08:42] LABS: CALC OSMOLALITY 276 mosm/kg (275-300); CALCIUM 8.4 mg/dL (8.5-10.1); CARBON DIOXIDE 27.8 mmol/L (21.0-32.0); CHLORIDE - SERUM 105 mmol/L (98-107); CREATININE - SERUM 0.7 mg/dL (0.6-1.3); GLUCOSE 96 mg/dL (74-106); POTASSIUM - SERUM 3.9 mmol/L (3.5-5.1); SODIUM 138 mmol/L (136-145); UREA NITROGEN 16 mg/dL (7-18); eGFR NON AFRICAN AMERICAN 84 mL/min (90-120)
--- NOTE | 2019-08-12 12:54 | NUR ---
REFERRAL TO [facility] MADE FOR POSSIBLE ADMISSION 08/15/19. WILL CONTINUE TO FOLLOW WITH PATIENT.
--- NOTE | 2019-08-12 12:55 | NUR ---
PATIENT WORKING IN REHAB ROOM WITH OCCUPATIONAL THERAPIST. DENIES ANY PAIN/DISC AT THIS TIME.
--- NOTE | 2019-08-12 20:00 | NUR ---
AWAKE AND ALERT. CONFUSED. RESPIRAITONS UNLABORED. MEDICATED FOR C/O PAIN. SEE MAR. NO ACUTE DISTRESS NOTED. CALL LIGHT IN REACH.
[2019-08-12 21:50] VITALS: BP 150/76
--- NOTE | 2019-08-13 00:17 | NUR ---
RESTING IN BED WITH RESPIRAITONS UNLABORED. NO DISTRESS NOTED.
--- NOTE | 2019-08-13 03:33 | NUR ---
CONTINUES SLEEPING WITH NO DISTRESS NOTED. CALL LIGHT IN REACH.
--- NOTE | 2019-08-13 05:22 | NUR ---
RESTLESS HOURS WITH CONFUSION AND ATTEMPTS TO GET OUT OF BED WITHOUT CALLING FOR ASSISTANCE. SAFETY MEASURES IN PLACE.
[2019-08-13 07:00] VITALS: BP 142/75
--- NOTE | 2019-08-13 09:55 | NUR ---
PT SAT UP ON SIDE OF BED FOR BREAKFAST, AM MEDS ADMINISTERED. PT ASSISTED INTO BR AND BACK TO BED. PT DENIES NEEDS AT THIS TIME. WCTM.
--- NOTE | 2019-08-13 19:17 | NUR ---
GREETED PATIENT AND INTRODUCED MYSELF HER NURSE. PATIENT IS LAYING IN BED RESTING AT THIS TIME. RESPIRATIONS EVEN. NO S/S OF DISTRESS. DENIES ANY NEEDS AT THIS TIME. CALL LIGHT IN REACH.
[2019-08-13 19:45] VITALS: BP 141/70
--- NOTE | 2019-08-14 00:59 | NUR ---
PT. RESTING QUIETLY WITH EYES CLOSED. RESPIRATIONS EVEN. NO S/S OF DISTRESS. CALL LIGHT IN REACH.
--- NOTE | 2019-08-14 03:00 | NUR ---
PT. RESTING QUIETLY WITH EYES CLOSED. RESPIRATIONS EVEN. NO S/S OF DISTRESS. CALL LIGHT IN REACH.
--- NOTE | 2019-08-14 08:08 | NUR ---
PT SITTING UP IN WHEELCHAIR EATING BREAKFAST, DENIES NEEDS. WCTM.
[2019-08-14 10:08] VITALS: BP 155/68
--- NOTE | 2019-08-14 19:14 | NUR ---
GREETED PATIENT AND INTRODUCED MYSELF HER NURSE. PATIENT IS LAYING IN BED RESTING QUIETLY AT THIS TIME. RESPIRATIONS EVEN. NO S/S OF DISTRESS. DENIES ANY FURTHER NEEDS AT THIS TIME. CALL LIGHT IN REACH.
[2019-08-14 19:30] VITALS: BP 115/57
--- NOTE | 2019-08-15 01:01 | NUR ---
PT. RESTING QUIETLY WITH EYES CLOSED. RESPIRATIONS EVEN. NO S/S OF DISTRESS. CALL LIGHT IN REACH. BED ALARM ON AND ACTIVE.
--- NOTE | 2019-08-15 07:36 | NUR ---
ALERT AND ORIENTED. NO DISTRESS NOTED. RESP EVEN AND UNLABORED. CL IN REACH.
[2019-08-15 08:14] VITALS: BP 118/54
[2019-08-15] MEDS ORDERED: HYDROCODON-ACE1 EAC7 PO (08:23)
[2019-08-15] MEDS ORDERED: MACROBID100 MG PO (08:25)
--- NOTE | 2019-08-15 13:23 | NUR ---
SITTING IN CHAIR IN ROOM. CHAIR ALARM ON. CL IN REACH.
--- NOTE | 2019-08-15 15:13 | NUR ---
WILL DC TO [facility] 5[facility] PER [facility]IR [facility]. SCRIPT FOR HYDROCODONE SENT WITH DC MED LIST. REPORT CALLED TO TO FACILITY NURSE.
--- NOTE | 2019-08-15 15:19 | NUR ---
PATIENT DISCHARGING TO [facility]IA [facility]ILITY [facility]. NO HOME HEALTH OR DME NEEDED AT THIS TIME. PATIENT CHOICE FORM FOR SNF SIGNED, COPY GIVEN TO PATIENT AND ONE FILED IN CHART.[facility] FORM SIGNED AND EXPLAINED, ONE FILED IN CHART AND ONE GIVEN TO PATIENT. AN APPOINTMENT WITH DR. ANDERSON WILL BE MADE AT TIME OF DISCHARGE FROM FACILITY. DR. COLLADO 08/25/19 @ 10:45, DR. SIMON 08/31/19 @ 10:00. DISCHARGE INSTRUCTIONS REVIEWED WITH PATIENT , FAXED TO PCP AND SNF. FAMILY HAS BEEN NOTIFIED.
--- NOTE | 2019-08-15 15:54 | NUR ---
REPORT GIVEN TO DONY, NURSE AT FACILITY.
== END 2019-08-15 17:00 | DRG 559 ==
LOC: D.REHAB 18:32
PROVIDERS: ADMIT Emergency Medicine; ATTEND Emergency Medicine
DX: S72.141D Displaced intertrochanteric fracture of right femur, subsequent encounter for closed fracture with routine healing (principal); I21.4 Non-ST elevation (NSTEMI) myocardial infarction; J18.9 Pneumonia, unspecified organism; J96.91 Respiratory failure, unspecified with hypoxia; E87.1 Hypo-osmolality and hyponatremia; B37.0 Candidal stomatitis; J81.1 Chronic pulmonary edema; W19.XXXD Unspecified fall, subsequent encounter; R13.12 Dysphagia, oropharyngeal phase; J44.9 Chronic obstructive pulmonary disease, unspecified; E03.9 Hypothyroidism, unspecified; D64.9 Anemia, unspecified; R53.1 Weakness; R32 Unspecified urinary incontinence; R47.1 Dysarthria and anarthria; I95.9 Hypotension, unspecified; R07.9 Chest pain, unspecified

== ENCOUNTER 2019-11-10 00:34 | Inpatient (IN) | payer MEDICARE, OTHER ==
--- NOTE | ~2019-11-10 | DS ---
PATIENT:FRIEND,IRASEMA Abebe :33 MEDICAL RECORD: [id number] DISCHARGE SUMMARY ADMISSION DATE: 11/10/19 DISCHARGE DATE: 11/29/19 IDENTIFYING DATA: The patient is 84 years old and she was admitted to the hospital on a voluntary basis. CHIEF COMPLAINT: Confusion and agitation. HISTORY OF PRESENT ILLNESS: The patient lives in a local snf. She has been paranoid there. She believes the staff is tunneling into her room for the purposes of attacking her. She has been threatening other people, staff, and patients at the snf. She has made statements that she was going to kill herself and she has been crying and disorganized. HOSPITAL COURSE: The patient was admitted to the hospital and fully evaluated from both a medical, psychological, and social standpoint. She was found to have an advanced dementia and was treated with both mood stabilizing and memory enhancing medications. She showed improvement through the course of the hospitalizations and was subsequently transitioned back to a long-term care setting. DISCHARGE DIAGNOSES: 1. AXIS I: Advanced major neurocognitive disorder of the Alzheimer's type with behavioral disturbances. 2. AXIS II: None. 3. AXIS III: Coronary artery disease, chronic obstructive pulmonary disease, glaucoma, cataracts, osteoarthritis, esophageal stricture, and hypothyroidism. 4. AXIS IV: Moderate stressors. 5. AXIS V: Global assessment of functioning is 30. PLAN: At the time of discharge, the patient was in good behavioral control and had no active thoughts of harming herself or others. She was tolerating her medications well. Her long-term prognosis is guarded. TRANSINT:[id number] Voice Confirmation ID: [id number] DOCUMENT ID: [id number] SANJUANA BAH MD CC: [id number] DICTATION DATE: 11/29/19 1616 SHREDDER PICKER: 11/30/19 0329 DIS IN 11/29/19 [facility] [address] [place] [address]
[~2019-11-10 00:34] MED LIST changes: +HYDROCODON-ACE1 EAC7 PO; +MACROBID100 MG PO
[2019-11-10 01:00] LABS: BASOPHILS 0.2 % (0-2); EOSINOPHILS 1.1 % (0-7); HEMOGLOBIN 12.8 g/dL (12-16); IMMATURE GRANULOCYTES 0.2 % (0-5); LYMPHOCYTES 37.6 % (15-50); MCH 31.7 pg (26.0-34.0); MEAN PLATELET VOLUME 8.9 fL (7.4-10.4); MONOCYTES 12.3 % (2-11); NEUTROPHILS 48.6 % (40-80); RBC 4.04 10x6/uL (4.00-5.40); RDW 14.6 % (11.5-14.5); WBC 6.2 10x3/uL (4.8-10.8)
[2019-11-10 01:04] LABS: PLATELET COUNT 206 10x3/uL (130-400)
[2019-11-10 01:07] LABS: ANION GAP 9.3 mmol/L (8-16); CALCIUM 8.7 mg/dL (8.5-10.1); CARBON DIOXIDE 26.8 mmol/L (21.0-32.0); POTASSIUM - SERUM 4.1 mmol/L (3.5-5.1)
[2019-11-10 01:13] LABS: ALBUMIN 3.5 g/dL (3.4-5.0); BILIRUBIN - TOTAL 0.5 mg/dL (0.2-1.3); MAGNESIUM - SERUM 1.6 mg/dL (1.8-2.4); PROTEIN - SERUM 6.6 g/dL (6.4-8.2)
[2019-11-10 04:36] LABS: BILIRUBIN NEGATIVE (NEGATIVE); GLUCOSE NEGATIVE (NEGATIVE); KETONE NEGATIVE (NEGATIVE); NITRITE NEGATIVE (NEGATIVE); UROBILINOGEN NORMAL (NORMAL)
[2019-11-10 04:42] LABS: UDS - AMPHET NEGATIVE QUAL (NEGATIVE); UDS - BARB NEGATIVE QUAL (NEGATIVE); UDS - BENZO NEGATIVE QUAL (NEGATIVE); UDS - COCAINE NEGATIVE QUAL (NEGATIVE); UDS - OPIATE NEGATIVE QUAL (NEGATIVE); UDS - PCP NEGATIVE QUAL (NEGATIVE); UDS - THC NEGATIVE QUAL (NEGATIVE)
--- NOTE | 2019-11-10 06:34 | NUR ---
SPOKE WITH BRITTNEY HENSLEY IN [facility]. SHE REPORTS THAT AFTER DR. BAH REVIEWED THE PT'S CHART, SHE DOES NOT MEET CRITERIA FOR ADMISSION TO [facility] WITH HER CURRENT BEHAVIORS. RECOMMENDS SENDING PT BACK TO [facility] AND F/U WITH HER PCP
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
--- NOTE | 2019-11-10 09:10 | NUR ---
PATIENT EVALUATED BY [facility] NURSE [facility], PATIENT WILL BE ACCEPTED TO [facility] PER [facility].
[2019-11-10] MEDS ORDERED: COLACE100 MG (11:53)
[2019-11-10] MEDS ORDERED: FERROUS SULFAT325 MG (11:59)
[2019-11-10] MEDS ORDERED: XALATAN 0.0052.5 ML RIGHT EYE (12:01)
[2019-11-10] MEDS ORDERED: IMODIUM2 MG (12:02)
[2019-11-10] MEDS ORDERED: NAPROXEN SODIU220 M1 (12:03)
[2019-11-10] MEDS ORDERED: MIRALAX17 GM (12:03)
[2019-11-10] MEDS ORDERED: NITROSTAT0.3 MG SL (12:05)
[2019-11-10] MEDS ORDERED: ZOLOFT25 MG (12:07)
[2019-11-10 12:41] VITALS: BP 80/40; BMI 19.2
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
[2019-11-10 13:49] LABS: CHOL - HDL RATIO 4.3 ratio (2.3-4.1); LDL-HDL RATIO 2.8 ratio (1.5-3.5)
[2019-11-10 16:03] VITALS: BP 80/40
[2019-11-10 20:00] VITALS: BP 115/56
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
[2019-11-11 09:57] VITALS: BP 109/57
[2019-11-11 13:58] VITALS: Wt 66.0 kg
--- NOTE | 2019-11-11 16:06 | NUR ---
PT SITTING IN CHAIR AT THIS TIME. CONFUSION NOTED. PT IS ALERT AND ORIENTED TO SELF ONLY. PT IS COMPLIANT WITH MEDS, VITALS AND ASSESSMENTS. DURING PERICARE PT STARTS YELLING AND IS COMBATIVE WITH STAFF. REDIRECT AND REORIENT NEEDED. PT REQUIRES 2X ASSISTANCE WITH ADLS. CHAIR ALARM IN PLACE AND ACTIVE. WILL CONT PLAN OF CARE.
--- NOTE | 2019-11-11 18:01 | NUR ---
The patient's grandson called and asked about her wellbeing and he said to tell her he loved her. Let her know that he called and she called him back and they spoke for a couple minutes.
[2019-11-11 20:00] VITALS: BP 107/57
--- NOTE | 2019-11-11 21:48 | NUR ---
B.) PT IS ALERT AND ORIENTED TO SELF AND SITUATION. SHE IS RECEIVED IN THE HALLWAY OUTSIDE THE NURSES STATION. SHE IS DEMANDING WITH STAFF. SHE USES A WHEELCHAIR TO ASSIST WITH AMBULATION. SHE ATTEMPTS TO MONOPOLIZE STAFF AND IS INTRUSIVE WITH OTHERS CARE AT TIMES. I.) PROVIDED PM MEDICATIONS SCHEDULED AND PRN NAPROXEN FOR CHRONIC BACK PAIN. REDIRECT OFTEN. R.) COMPLIANT WITH ALL MEDICATIONS EXCEPT MUCINEX. DIFFICULT TO REDIRECT AT TIMES. P.) WILL CONTINUE TO MONITOR.
--- NOTE | 2019-11-12 07:43 | NUR ---
The patient is awake and she is pleasant this am, she did not scream or yell when staff got her up out of bed. She states she slept "Pretty good." She is self propelling in a w/c. She asked me my name this am, but she had forgotten we met yesterday. She is oriented to self only. She has poor insight into her situation. She has not shown aggression, or paranoia this am, will monitor her bahaviors and mood. Provide prescribed meds. Continue POC.
[2019-11-12 08:09] VITALS: BP 100/52
[2019-11-12 20:00] VITALS: BP 96/56
--- NOTE | 2019-11-12 22:30 | NUR ---
B.) PT IS ALERT AND ORIENTED TO SELF AND SITUATION. SHE IS RECEIVED IN THE DAYROOM SOCIALIZING WITH HER PEERS. SHE IS CALM AND COOPERATIVE. SHE IS DEMANDING WITH STAFF AT TIMES. I.) PROVIDED PM MEDICATIONS PRESCRIBED. REDIRECT NEEDED. PROVIDED PRN NAPROXEN FOR HER CHRONIC BACK PAIN. R.) COMPLIANT WITH ALL MEDICATIONS. EASY TO REDIRECT AT TIMES. P.) WILL CONTINUE TO MONITOR.
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
--- NOTE | 2019-11-13 10:00 | NUR ---
The patient sat on the couch after breakfast and she was complaining that her pants are too tight. So explained to her that "We can change her pants." She said "Well, you do realize I have a metal arturo in my back, don't you." Let her we did know.
--- NOTE | 2019-11-13 10:20 | NUR ---
Staff offered to to change her pants since her pants are tight around her waist. The patient declined she says "I don't trust those girls." Explained to her that I am with you and I can help you. She then said I was a snake because I was going to allow staff to assist her. She is very demented and she wants her way right now. She absolutely refused to have her pants changed even though she was adamant they be changed earlier.
--- NOTE | 2019-11-13 19:48 | NUR ---
RECEIVED IN DAYROOM. SITTING IN A CHAIR WITH PEERS AT HER SIDE. CALM AND COOPERATIVE WITH CARE AND ASSESSMENT. NO SIGNS OF PARANOIA. REDIRECT AND REORIENT NEEDED. CONTINUES TO SIT CALMLY IN DAYROOM. CONTINUE PLAN OF CARE.
[2019-11-13 20:04] VITALS: BP 104/55
[2019-11-14 07:40] VITALS: BP 100/50
--- NOTE | 2019-11-14 12:00 | NUR ---
RECEIVED IN HALLWAY OUTSIDE OF NURSES STATION. CALM AND COOPERATIVE WITH CARE AND ASSESSMENT. PARANOID AT TIMES. DEMANDING. REDIRECT AND REORIENT NEEDED. EATING LUNCH AT THIS TIME. CONTINUE PLAN OF CARE.
--- NOTE | 2019-11-14 12:04 | PSY ---
PATIENT NAME:FRIENDIRASEMA MEDICAL RECORD: [id number] : 33 LOCATION:[facility] ADMISSION DATE: 11/10/19 ACCOUNT: [id number] PSYCHIATRIC EVALUATION DATE OF EVALUATION: 11/10/19 IDENTIFYING DATA: The patient is 84 years old and she was admitted to the hospital on a voluntary basis. CHIEF COMPLAINT: Confusion and agitation. HISTORY OF PRESENT ILLNESS: The patient lives in a local snf. She has been very paranoid there. She believes that the staff is tunneling into her room to attack her. She has been threatening other people, staff and patients at the snf. She also said that she is going to kill herself. She has been crying and disorganized. PAST MEDICAL HISTORY: Significant for coronary artery disease, COPD, hypothyroidism and a fracture of her right femur. PAST PSYCHIATRIC HISTORY: None. FAMILY HISTORY: Unknown. ALLERGIES: PENICILLIN AND STATINS. CURRENT MEDICATIONS: Include iron, MiraLax and Zoloft. SOCIAL HISTORY: The patient is . She does have adult children. She denies a history of drug or alcohol abuse. MENTAL STATUS EXAMINATION: The patient is awake, alert and oriented to person, but not to place, time or situation. Her mood is angry. Her affect is constricted. Thought processes are disorganized. Memory, concentration, and abstraction abilities are moderately impaired and she denies any intent to harm herself or others as well as psychotic symptoms. ASSETS: Supportive family members. LIABILITIES: Limited insight. 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 AXIS II: None. AXIS III: Coronary artery disease, chronic obstructive pulmonary disease, glaucoma, cataracts, esophageal stricture, hypothyroidism. AXIS IV: Moderate stressors. AXIS V: Global assessment of functioning is 25. PLAN: At this time, the patient is admitted to the hospital secondary to psychotic, agitated symptoms associated with a dementing illness. She will be treated with mood stabilizing and antipsychotic medications as deemed appropriate. Her long-term prognosis is guarded. TRANSINT:[id number] Voice Confirmation ID: [id number] DOCUMENT ID: [id number] SANJUANA BAH MD at 1204 CC: [id number] DICTATION DATE: 11/10/19 162 NON PROFIT JOB TITLES: 11/10/19 1637 ADM IN [facility] [address] [place] [place] [id number]
--- NOTE | 2019-11-14 20:02 | NUR ---
RECEIVED IN HALLWAY OUTSIDE OF NURSES STATION. CALM AND COOPERATIVE WITH CARE AND ASSESSMENT. NO SIGNS OF PARANIOA. REDIRECT AND REORIENT NEEDED. CONTINUES TO SIT CALMLY IN DAYROOM. CONTINUE PLAN OF CARE.
[2019-11-14 21:00] VITALS: BP 94/46
[2019-11-15 08:04] VITALS: BP 97/59
--- NOTE | 2019-11-15 14:33 | NUR ---
Nutrition Follow-up: PO intake seems to fluctuate. Ate 25-80% of meals yesterday. Diet: Regular, Ensure TID PO intake: 48% avg x 9 meals Wt: 128# (11/12); 126# (11/10) Last BM: 11/14 No new labs Meds noted: Folate, Protonix, Imodium -Encourage PO intake and honor food preferences. -Monitor wt. -RD following.
--- NOTE | 2019-11-15 15:00 | PN ---
PATIENT:FRIENDIRASEMA MEDICAL RECORD: [id number] LOCATION:[facility] ADMISSION DATE: 11/10/19 PROGRESS NOTE DATE OF SERVICE: 11/14/2019 SUBJECTIVE: The patient's case was discussed with staff. She has no new complaint. OBJECTIVE: The patient is in good behavioral control. She is only partially oriented. She has not been aggressive. ASSESSMENT: Dementia. PLAN: The patient will be maintained on current medicines, which I have reviewed. Her long-term prognosis is guarded. Both supportive and educational interventions were made. TRANSINT:[id number] Voice Confirmation ID: [id number] DOCUMENT ID: [id number] SANJUANA BAH MD at 1500 CC: [id number] DICTATION DATE: 11/14/19 1303 CORONER'S JUROR: 11/14/19 1315 ADM IN [facility] [address] [place] [address]
--- NOTE | 2019-11-15 17:00 | NUR ---
RECEIVED IN HALLWAY OUTSIDE OF NURSES STATION. CALM AND COOPERATIVE WITH CARE AND ASSESSMENT. BECOMES UPSET AND TEARFUL THROUGHOUT THE DAY. REDIRECT AND REORIENT NEEDED. EATING AT THIS TIME. CONTINUE PLAN OF CARE.
--- NOTE | 2019-11-15 20:01 | NUR ---
RECEIVED IN DAYROOM. SITTING IN A CHAIR WITH PEERS AT HER SIDE. CALM AND COOPERATIVE WITH CARE AND ASSESSMENT. NO SIGNS OF PARANOIA AT THIS TIME. REDIRECT AND REORIENT NEEDED. CONTINUES TO SIT CALMLY IN DAYROOM. CONTINUE PLAN OF CARE.
[2019-11-15 20:09] VITALS: BP 80/45
[2019-11-16 10:06] VITALS: BP 108/53
--- NOTE | 2019-11-16 13:02 | NUR ---
The patient is awake and alert this am, asked her "How are you today?" She said "I'm not happy, I want to go home with my ." Asked her "Does your have someone to take care of you?" She said "You know full well about my , you talked to him on the phone." I said "I'm sorry I don't know your ." She said "You lie, you are a snake in the grass." Provide prescribed meds. The patient is compliant with meds. The patient has poor insight into her situation and she is irritable with her conversations. She is demanding as she wants to get her way right now. Continue POC
--- NOTE | 2019-11-16 14:51 | PN ---
PATIENT:FRIENDIRASEMA MEDICAL RECORD: [id number] LOCATION:[facility] ADMISSION DATE: 11/10/19 PROGRESS NOTE DATE OF SERVICE: 11/15/2019 SUBJECTIVE: The patient's case was discussed with staff. She has no new complaint. OBJECTIVE: The patient is in good behavioral control. She has not been aggressive. ASSESSMENT: Dementia. PLAN: Current medicines have been reviewed and will be maintained. Long-term prognosis is guarded. TRANSINT:[id number] Voice Confirmation ID: [id number] DOCUMENT ID: [id number] SANJUANA BAH MD at 1451 CC: [id number] DICTATION DATE: 11/15/19 1521 THEATER EDUCATION TEACHER: 11/15/19 2234 ADM IN [place] [id number] [place] [address]
[2019-11-16 20:11] VITALS: BP 103/55
--- NOTE | 2019-11-16 21:50 | NUR ---
B.) PT IS ALERT AND ORIENTED TO SELF ONLY. SHE IS RECEIVED IN THE DAYROOM IN HER WHEELCHAIR SOCIALIZING WITH PEERS. SHE IS INTRUSIVE WITH OTHERS CARE AND DEMANDING WITH STAFF. I.) PROVIDED PM MEDICATIONS PRESCRIBED. REDIRECT OFTEN. R.) COMPLIANT WITH ALL MEDICATIONS. DIFFICULT TO REDIRECT. P.) WILL CONTINUE TO MONITOR.
[2019-11-17 08:33] VITALS: BP 105/43
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
--- NOTE | 2019-11-17 10:32 | NUR ---
PRN EFFECTIVE AT THIS TIME.
--- NOTE | 2019-11-17 13:52 | NUR ---
Nutrition Follow-up: PO intake improved. Ate 100% x 3 meals yesterday. Diet: Regular, Ensure TID PO intake: 79% avg x 9 meals (improved from 48% x 9 meals on 11/14) Wt: 128# (11/12); 126# (11/10) Last BM: 11/16 No new labs Meds noted: Folate, Protonix -Encourage PO intake and honor food preferences. -Monitor wt. -RD following.
--- NOTE | 2019-11-17 14:39 | PN ---
PATIENT:IRASEMA FRYE MEDICAL RECORD: [id number] LOCATION:[facility] ADMISSION DATE: 11/10/19 PROGRESS NOTE DATE OF SERVICE: 11/16/2019 SUBJECTIVE: The patient's case was discussed with staff. She has no new complaint. OBJECTIVE: The patient is quite impaired cognitively, but has not been seriously disruptive. She does become somewhat agitated, but so far the staff has been able to redirect her without any significant difficulty. ASSESSMENT: Dementia. PLAN: The patient is going to be treated with a low dose of Celexa to assist with her mood instability. She will be monitored for clinical changes associated with its use. Her long-term prognosis is guarded. TRANSINT:[id number] Voice Confirmation ID: [id number] DOCUMENT ID: [id number] SANJUANA BAH MD at 1439 CC: [id number] DICTATION DATE: 11/16/19 1630 BOILER TESTER: 11/17/19 0210 ADM IN [place] [id number] [place] [id number]
--- NOTE | 2019-11-17 14:49 | NUR ---
RECEIVED THIS AM IN RECLINER AT NURSES STATION.ORIENTED TO SELF.HAD TO BE GIVEN ATIVAN AND HALDOL IM THIS MORNING DUE TO AGGRESSION AND YELLING OUT.WILL CONTINUE WITH CURRENT PLAN OF CARE,MONITOR FOR CHANGES AND SAFETY.
[2019-11-17 20:38] VITALS: BP 101/45
--- NOTE | 2019-11-17 20:54 | NUR ---
B.) PT IS ALERT AND ORIENTED TO SELF ONLY. SHE IS RECIEVED IN THE DAYROOM IN A GERICHAIR. SHE IS DEMANDING OF STAFF AT TIMES AND TEARFUL AT TIMES. ABLE TO VOICE NEEDS AND CONCERNS. I.) PROVIDED PM MEDICATIONS PRESCRIBED. REDIRECT OFTEN. R.) COMPLIANT WITH ALL MEDICATIONS. EASY TO REDIRECT. P.) WILL CONTINUE TO MONITOR.
--- NOTE | 2019-11-18 08:37 | NUR ---
Got patient up and she told me she needed to urinate, attempted to help her and she screamed and said she hurts then she went limp, tried to pull her pants up. The patient screamed so loud another staff came in to assist her to stand up. She was assisted to the recliner and then as she was moved to the recliner she said "I'm peeing right now." The patient continues to exhibit manipulative and priviliged behaviors. Provide prescribed meds. Redirect as needed for bahaviors. Continue POC.
[2019-11-18 10:36] VITALS: BP 157/71
--- NOTE | 2019-11-18 19:07 | NUR ---
PASSCODE GIVEN. TAMARA CALLED TO CHECK ON PT. UPDATE GIVEN AND NO TENTIVE DISCHARGE DATE.
[2019-11-18 20:18] VITALS: BP 86/46
--- NOTE | 2019-11-19 00:48 | NUR ---
RECEIVED PATIENT IN DAYROOM. PATIENT HAS A VERY FLAT AFFECT, NO AGGRESSION NOTED, PATIENT WAS VERY HESITANT TO TAKE HER MEDS, CAN MAKE HER NEEDS KNOWN, WILL FOLLOW POC
[2019-11-19 09:13] VITALS: BP 112/51
--- NOTE | 2019-11-19 13:45 | NUR ---
The patient is calm and quiet this am she has not been negative this am. She has not been demanding. She speaks calmly today and has not screamed out. Provide prescribed meds. The patient is compliant with meds. Continue POC.
--- NOTE | 2019-11-19 18:26 | NUR ---
SPOKE WITH PT GRANDSON ABOUT HER BEHAVIOR. PASSCODE GIVEN. WANTED TO KNOW HOW SHE WAS DOING AND WHEN SHE WOULD BE LEAVING. NURSE STATED WE DID NOT HAVE A TENTIVE DISCHARGE DATE. WE DID NOT BUT SHE HAS TO HAVE 3 GOOD DAYS OF NOTES. CASTING CLEANER WOULD REACH OUT TO THEM ON THURSDAY OR EARLY THIS WEEK. HE UNDERSTOOD.
[2019-11-19 20:00] VITALS: BP 91/42
--- NOTE | 2019-11-19 20:56 | NUR ---
RECEIVED PATIENTLY SITTING IN QUIETLY SITTING IN DAYROOM, SHE HAS CONFUSION BUT NO NEGATIVE BEHAVIORS AT THIS TIME, SHE IS COMPLIANT WITH MEDS, WILL FOLLOW POC
--- NOTE | 2019-11-20 09:00 | NUR ---
PT IS YELLING OUT AT STAFF AND OTHERS RESIDENTS AT THIS TIME. SHIFT ASSESSMENT COMPLETED. PRESCRIBED MEDS PROVIDED PER ORDER. MED COMPLIANT. PT CAN BECOME UPSET AND TEARFUL AT TIMES. WILL CPOC.
[2019-11-20 10:35] VITALS: BP 101/56
[2019-11-20 20:00] VITALS: BP 87/47
[2019-11-21 08:18] VITALS: BP 113/59
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
[2019-11-21 20:50] VITALS: BP 86/46
[2019-11-22 08:58] VITALS: BP 103/60
--- NOTE | 2019-11-22 09:00 | NUR ---
SW SPOKE WITH PT'S GRANDSON TO DISCUSS PT'S CONDITION AND DISCHARGE PLANNING NEEDS. NATHALIE STATED PT IS MORE STABLE THAN SHE WAS LAST WEEK AND A GURDEEP WILL BE COMPLETED. NATHALIE WILL REFER PT BACK TO [facility] WHEN GURDEEP RETURNS. PT'S GDSON VOICED UNDERSTANDING OF CONVERSATION.
--- NOTE | 2019-11-22 13:07 | PN ---
PATIENT:FRIENDIRASEMA MEDICAL RECORD: [id number] LOCATION:[facility] ADMISSION DATE: 11/10/19 PROGRESS NOTE DATE OF SERVICE: 11/21/2019 SUBJECTIVE: The patient's case was discussed with staff. She has no new complaint. OBJECTIVE: The patient is in good behavioral control today, although she is only partially oriented. A couple of days ago, she did have to have some p.r.n. Ativan for some agitation. ASSESSMENT: Dementia. PLAN: Brief supportive and educational interventions were made. I anticipate she can be returned to [place] soon if this level of improvement continues. TRANSINT:[id number] Voice Confirmation ID: [id number] DOCUMENT ID: [id number] SANJUANA BAH MD at 1307 CC: [id number] DICTATION DATE: 11/21/19 1619 SPEECH PATHOLOGY ASSISTANT: 11/22/19 0132 ADM IN [facility] [address] [place] [address]
--- NOTE | 2019-11-22 13:10 | NUR ---
PT SITTING IN DAY AREA TALKING WITH PEERS. PT IS FRIENDLY WITH STAFF AND PEERS. PT ALLOWED STAFF TO FIX HAIR AND ASSIST WITH ADLS. PT ASSISTED NURSE WITH TOILETING. PT COMPLIANT WITH MEDS, VITALS AND ASSESSMENTS. PT STATED THAT SHE WAS HERE BECAUSE SHE KNOWS SHE CAN GET MAD." NO BEHAVIORS NOTED FROM PREVIOUS SHIFT. WILL CONT TO MONITOR FOR SAFETY. CHAIR ALARM IN PLACE AND ACTIVE. WILL CONT TO MONITOR.
[2019-11-22 20:00] VITALS: BP 90/48
--- NOTE | 2019-11-22 20:19 | NUR ---
RECEIVED IN DAYROOM. SITTING IN A CHAIR WITH PEERS AT HER SIDE. CALM AND COOPERATIVE WITH CARE AND ASSESSMENT. NO SIGNS OF PARANOIA. REDIRECT AND REORIENT NEEDED. CONTINUES TO STI QUIETLY IN DAYROOM. CONTINUE PLAN OF CARE.
[2019-11-23 08:00] VITALS: BP 103/44
--- NOTE | 2019-11-23 10:42 | NUR ---
RECEIVED IN HALLWAY OUTSIDE OF NURSES STATION. YELLING OUT. UNCOOPERATIVE WITH CARE. REDIRECT AND REORIENT NEEDED. SITTING IN GROUP AT THIS TIME. CONTINUE PLAN OF CARE.
--- NOTE | 2019-11-23 14:04 | PN ---
PATIENT:FRIENDIRASEMA MEDICAL RECORD: [id number] LOCATION:[facility] ADMISSION DATE: 11/10/19 PROGRESS NOTE DATE OF SERVICE: 11/22/2019 SUBJECTIVE: The patient's case was discussed with staff. She has no new complaint. OBJECTIVE: The patient has been in good behavioral control with limited insight about her situation. She is tolerating her medicines well. ASSESSMENT: Dementia. PLAN: Current medicines have been reviewed and will be maintained. If this level of improvement continues, I anticipate she can be returned to the assisted living center soon. TRANSINT:[id number] Voice Confirmation ID: [id number] DOCUMENT ID: [id number] SANJUANA BAH MD at 1404 CC: [id number] DICTATION DATE: 11/22/19 1419 ELECTRICAL TECHNOLOGY INSTRUCTOR: 11/23/19 0113 ADM IN [facility] [address] [place] [address]
--- NOTE | 2019-11-23 15:44 | NUR ---
Nutrition Follow-up: Diet: Regular + Chocolate Ensure with meals PO intake: ~76% average x last 9 meals Last BM: 11/22/19. WT: 128# (11/13/19); Admit Wt: 126# (11/10/19)- no new wt Meds reviewed. No new labs. Recommend continue current diet and oral nutrition supplements. RD following.
[2019-11-23 20:00] VITALS: BP 100/55
--- NOTE | 2019-11-23 20:54 | NUR ---
B.) PT IS ALERT AND ORIENTED TO SELF ONLY. SHE IS RECEIVED IN THE DAYROOM IN HER WHEELCHAIR. SHE RELATES THAT SHE IS READY TO GO TO BED. SHE IS ABLE TO VOICE HER NEEDS AND CONCERNS. SHE IS CALM AND COOPERATIVE WITH STAFF. I.) PROVIDED PM MEDICATIONS. REDIRECT NEEDED. R.) COMPLIANT WITH ALL MEDICATIONS. EASY TO REDIRECT. P.) WILL CONTINUE TO MONITOR.
--- NOTE | 2019-11-24 08:05 | NUR ---
PT IS PLEASANT WITH STAFF. SHE IS UP WITH ASSIST. SHE IS CALM AND COOPERATIVE. PREVIOUS SHIFT REPORTS MED COMPLIANCE. SHE IS EASY TO REDIRECT. SHE USES A WHEELCHAIR. WILL CONTINUE TO MONITOR.
[2019-11-24 10:25] VITALS: BP 82/47
--- NOTE | 2019-11-24 12:57 | PN ---
PATIENT:FRIENDIRASEMA MEDICAL RECORD: [id number] LOCATION:[facility] ADMISSION DATE: 11/10/19 PROGRESS NOTE DATE OF SERVICE: 11/23/2019 SUBJECTIVE: The patient's case was discussed with staff. She has no new complaint. OBJECTIVE: The patient is only partially oriented. She has not been disruptive or aggressive. ASSESSMENT: Dementia. PLAN: I am going to stop the patient's Trilafon. She has been in good behavioral control for several days. I would like to see if she can be managed without it. If so, I anticipate she can be transitioned back to the [facility] soon. TRANSINT:[id number] Voice Confirmation ID: [id number] DOCUMENT ID: [id number] SANJUANA BAH MD at 1257 CC: [id number] DICTATION DATE: 11/23/19 1421 BIOLOGICS SPECIALIST: 11/23/19 1457 ADM IN [place] [id number] [place] [address]
[2019-11-24 20:00] VITALS: BP 93/42
--- NOTE | 2019-11-24 23:20 | NUR ---
B) Patient is alert and oriented to person and place, demanding and screams with all care, I) Administered scheduled medications as ordered, monitored for safety, assisted with needs, R) Medication compliant sleeping now quietly in her bed, P_ Continue plan of care.
[2019-11-25 10:22] VITALS: BP 97/53
--- NOTE | 2019-11-25 10:24 | NUR ---
PT GRANDSON CALLED TO CHECK ON PT. PASSCODE GIVEN. HE JUST WANTED TO KNOW HOW SHE WAS DOING AND LET HER KNOW THAT HE WAS CALLING AT PHONE TIME TO TALK TO HER.
--- NOTE | 2019-11-25 11:35 | NUR ---
PT IS SITTING AND SOCIALIZING WITH STAFF AND PEERS. PT IS COMPLIANT WITH MEDS, VITALS AND ASSESSMENTS. PT IS FRIENDLY WITH STAFF AND PEERS. NO BEHAVIORS NOTED FROM PREVIOUS SHIFT. NO BEHAVIORS NOTED THIS SHIFT. PT C/O OF H/A. NAPREOXEN 250 MG PO GIVEN THIS SHIFT. CHAIR ALARM IN PLACE AND ACTIVE. WILL CONT PLAN OF CARE.
--- NOTE | 2019-11-25 14:45 | PN ---
PATIENT:FRIENDIRASEMA MEDICAL RECORD: [id number] LOCATION:[facility] ADMISSION DATE: 11/10/19 PROGRESS NOTE DATE OF SERVICE: 11/24/2019 SUBJECTIVE: The patient's case was discussed with staff. She has no new complaint. OBJECTIVE: The patient denies intent to harm herself or others. She is tolerating her medicines well. She is very impaired cognitively, but has not been aggressive. ASSESSMENT: Dementia. PLAN: Brief supportive and educational interventions were made. Current medicines have been reviewed and will be maintained. I anticipate she can be transitioned to the long term as soon as the office of long-term care gives approval. TRANSINT:[id number] Voice Confirmation ID: [id number] DOCUMENT ID: [id number] SANJUANA BAH MD at 1445 CC: [id number] DICTATION DATE: 11/24/19 1507 BUSINESS MANAGEMENT ANALYST: 11/24/19 2250 ADM IN [place] [address] [place] [address]
[2019-11-25 20:10] VITALS: BP 103/42
--- NOTE | 2019-11-25 22:46 | NUR ---
B.) PT IS ALERT AND ORIENTED TO SELF AND SITUATION. SHE IS RECEIVED IN THE DAYROOM SOCIALIZING WITH PEERS. SHE IS CALM, COOPERATIVE AND PLEASANT WITH STAFF. I.) PROVIDED PM MEDICATIONS PRESCRIBED. REDIRECT NEEDED. R.) COMPLIANT WITH ALL MEDICATIONS. EASY TO REDIRECT. P.) WILL CONTINUE TO MONITOR.
[2019-11-26 11:35] VITALS: BP 110/55
--- NOTE | 2019-11-26 11:56 | NUR ---
AWAKE AND ALERT AND TAKES MEDS WHOLE WITH PUDDING. NO ABNORMAL BEHAVIORS NOTED AT THIS TIME. PATINET ABLE TO REDIRECT WITH VERBAL CUES. DENIES ANY PAIN OR DISCOMFORT. GOOD ROM OF EXTERMITIES. ENCOURAGED TO ASK FOR ASSSIT IF NEEDED.
--- NOTE | 2019-11-26 12:24 | NUR ---
The patient is awake and alert she is pleasant and calm, she is not yelling and acting up. She is helping staff with transfers. She is in a w/c and can self propel. Provide prescribed meds. The patient is compliant with meds. Continue POC.
--- NOTE | 2019-11-26 12:46 | PN ---
PATIENT:FRIENDIRASEMA MEDICAL RECORD: [id number] LOCATION:[facility] ADMISSION DATE: 11/10/19 PROGRESS NOTE DATE OF SERVICE: 11/25/2019 SUBJECTIVE: The patient's case was discussed with staff. She has no new complaint. OBJECTIVE: The patient has limited insight about her situation. She generally tolerates her medicines well. ASSESSMENT: Dementia. PLAN: Brief supportive and educational interventions were made. Long-term prognosis is guarded. TRANSINT:[id number] Voice Confirmation ID: [id number] DOCUMENT ID: [id number] SANJUANA BAH MD at 1246 CC: [id number] DICTATION DATE: 11/25/19 1514 CERTIFIED VETERINARY TECHNICIAN: 11/26/19 0013 ADM IN [place] [address] [place] [address]
[2019-11-26 17:29] VITALS: BP 110/55
[2019-11-26 20:21] VITALS: BP 99/50
--- NOTE | 2019-11-26 22:23 | NUR ---
B.) PT IS ALERT AND ORIENTED TO SELF AND PLACE. SHE IS RECEIVED IN THE DAYROOM SOCIALIZING WITH PEERS. SHE IS USING A WHEELCHAIR TO ASSIST WITH AMBULATION. SHE IS TRANSFERING WITH MINIMAL ASSIST. SHE IS CALM, COOPERATIVE AND PLEASANT WITH STAFF. I.) PROVIDED PM MEDICATIONS PRESCRIBED. REDIRECT NEEDED. R.) COMPLIANT WITH ALL MEDICATIONS. EASY TO REDIRECT. P.) WILL CONTINUE TO MONITOR.
--- NOTE | 2019-11-27 07:30 | NUR ---
RECEIVED THIS AM SITTING IN CHAIR AT [facility].IS AMBULATORY.IS ORIENTED TO SELF AND HOSPITAL.POOR INSITE TO WHY SHE IS HERE.IS COMPLIANT WITH MEDS AND STAFF.CAN BE ARGUMENTIVE AT TIMES.WILL CONTINUE WITH CURRENT PLAN OF CARE,MONITOR FOR CHANGES AND SAFETY.
[2019-11-27 08:25] VITALS: BP 128/59
--- NOTE | 2019-11-27 13:04 | PN ---
PATIENT:FRIENDIRASEMA MEDICAL RECORD: [id number] LOCATION:[facility] ADMISSION DATE: 11/10/19 PROGRESS NOTE DATE OF SERVICE: 11/26/2019 SUBJECTIVE: The patient's case was discussed with staff. She has no new complaint. OBJECTIVE: The patient is much more pleasant and interactive. She has not been aggressive. She is no longer having any paranoid or delusional thoughts. ASSESSMENT: Dementia. PLAN: The patient can be transitioned out of the hospital as soon as arrangements can be made. Her long-term prognosis is guarded. TRANSINT:[id number] Voice Confirmation ID: [id number] DOCUMENT ID: [id number] SANJUANA BAH MD at 1304 CC: [id number] DICTATION DATE: 11/26/19 1259 MULTI CARE TECHNICIAN: 11/26/[address] [facility] [address] [place] [address]
--- NOTE | 2019-11-27 14:52 | PN ---
PATIENT:FRIENDIRASEMA MEDICAL RECORD: [id number] LOCATION:[facility] ADMISSION DATE: 11/10/19 PROGRESS NOTE DATE OF SERVICE: 11/27/2019 SUBJECTIVE: The patient's case was discussed with staff. She has no new complaint. OBJECTIVE: The patient is cooperative and interacting well. She has severe cognitive impairment. ASSESSMENT: Dementia. PLAN: Current medicines have been reviewed and will be maintained. Long-term prognosis is guarded. TRANSINT:[id number] Voice Confirmation ID: [id number] DOCUMENT ID: [id number] SANJUANA BAH MD at 1452 CC: [id number] DICTATION DATE: 11/27/19 1325 ANCHOR OPERATOR: 11/27/19 1336 ADM IN [place] [id number] [place] [address]
--- NOTE | 2019-11-27 19:24 | NUR ---
CORRECTION PATIENT IS NOT AMBULATORY,PROPELLS SELF IN WHEELCHAIR.
--- NOTE | 2019-11-27 19:27 | NUR ---
RECEIVED IN DAYROOM. SITTING IN A CHAIR WITH PEES AT HER SIDE. SOCIAL AT TIMES. CALM AND COOPERATIVE WITH CARE AND ASSESSMENT. NO SIGNS OF PARANOIA. REDIRECT AND REORIENT NEEDED. CONTINUES TO SIT CALMLY IN DAYROOM. CONTINUE PLAN OF CARE.
[2019-11-27 20:24] VITALS: BP 147/77
[2019-11-28 09:07] VITALS: BP 120/59
--- NOTE | 2019-11-28 12:00 | NUR ---
RECEIVED IN HALLWAY OUTSIDE OF NUR[facility]ES [facility]. CALM AND COOPERATIVE WITH CARE AND ASSESSMENT. NO BEHAVIORS. REDIRECT AND REORIENT NEEDED. EATING LUNCH AT THIS TIME. CONTINUE PLAN OF CARE.
[2019-11-28] MEDS ORDERED: DONEPEZIL HCL5 MG PO (14:39)
[2019-11-28] MEDS ORDERED: VOLTAREN100 GM TOPICAL (14:40)
[2019-11-28] MEDS ORDERED: NAPROXEN250 MG PO (14:40)
[2019-11-28] MEDS ORDERED: CELEXA20 MG PO (14:40)
[2019-11-28 19:45] VITALS: BP 97/43
--- NOTE | 2019-11-28 20:00 | NUR ---
RECEIVED IN DAYROOM. SITTING IN A CHAIR WITH PEERS AT HER SIDE. CALM AND COOPERATIVE WITH CAR AND ASSESSMENT. NO SIGNS OF PARANOIA. REDIRECT AND REORIENT NEEDED. CONTINUES TO SIT CALMLY IN DAYROOM. CONTINUE PLAN OF CARE.
[2019-11-29 09:53] VITALS: BP 112/53
--- NOTE | 2019-11-29 11:40 | NUR ---
SW CALLED PT'S GDSON, MARY ALICE, TO DISCUSS PT DISCHARGING TODAY AND BEING PICKED UP BY [facility] AT 12. MARY ALICE VOICED UNDERSTANDING OF DISCUSSION.
--- NOTE | 2019-11-29 12:15 | NUR ---
PATIENT DISCHARGED TO [facility]. TRANSPORTED TO [facility]IA [facility]. PAPERWORK FAXED TO [facility] AND HARD COPY SENT WITH PATIENT. PERSONAL BELONGINGS SENT WITH PATIENT.
--- NOTE | 2019-11-29 13:53 | PN ---
PATIENT:FRIENDIRASEMA MEDICAL RECORD: [id number] LOCATION:[facility] ADMISSION DATE: 11/10/19 PROGRESS NOTE DATE OF SERVICE: 11/28/2019 SUBJECTIVE: The patient's case was discussed with staff. She has no new complaint. OBJECTIVE: The patient denies intent to harm herself or others. She generally tolerates her medicines well. Eye contact is fair. ASSESSMENT: Dementia. PLAN: Brief supportive and educational interventions were made. Long-term prognosis is guarded. I am going to transition her out of the hospital into the longterm tomorrow. TRANSINT:[id number] Voice Confirmation ID: [id number] DOCUMENT ID: [id number] SANJUANA BAH MD at 1353 CC: [id number] DICTATION DATE: 11/28/19 1438 CAMPUS DIRECTOR: 11/29/19 0039 DIS IN 11/29/19 [place] [id number] [place] [address]
== END 2019-11-29 12:15 | DRG 57 ==
LOC: D.ER 00:34 → D.PSYCH 09:11
PROVIDERS: Family Medicine; ADMIT Psychiatry & Neurology Psychiatry; ATTEND Psychiatry & Neurology Psychiatry
DX: G30.9 Alzheimer's disease, unspecified (principal); F02.81 Dementia in other diseases classified elsewhere, unspecified severity, with behavioral disturbance; I25.10 Atherosclerotic heart disease of native coronary artery without angina pectoris; J44.9 Chronic obstructive pulmonary disease, unspecified; E03.9 Hypothyroidism, unspecified; F41.8 Other specified anxiety disorders; M19.90 Unspecified osteoarthritis, unspecified site; K59.00 Constipation, unspecified; K22.2 Esophageal obstruction; H26.9 Unspecified cataract; H40.9 Unspecified glaucoma; F29 Unspecified psychosis not due to a substance or known physiological condition; D50.9 Iron deficiency anemia, unspecified